=== PATIENT | female | born 1950 | race Caucasian/White ===

== ENCOUNTER 2020-12-13 10:55 | Emergency (ER) | payer OTHER ==
--- OUTSIDE RECORDS SUMMARY | 2020-12-13 10:57 | XMS REPORT | Continuity of Care Document ---
:1950 Author Organization [facility] t Address [address] [place] [address] Care Team Providers Name Role Phone Lab, Fam Pob I Attending Clinician Unavailable Doctor Unassigned, Name Attending Clinician Unavailable Simón Young Attending Clinician Problems Condition Condition Condition Status Onset Resolution Last Treating Co mments Source Name Details Category Date Date Treatment Clinician Date Morbid Problem Active 2018-10-12 Memor ia obesity 21:24:37 l (disorder) Morbid Herm cristobal obesity (disorder) Active Problem 10/12/2018 [facility] Paresthesi Problem Active 2018-10-12 M emoria a 21:24:37 l (finding) [place] Paresthesi a (finding) Active Problem 10/12/2018 [facility] Tremor Problem Active 2018-10-12 Memor ia (finding) 21:24:37 l Tremor [place] (finding) Active Problem 10/12/2018 [facility] Hemifacial Problem Active 2018-10-12 M emoria spasm 21:24:37 l (finding) Josh Hemifacial spasm (finding) Active Problem 10/12/2018 [facility] Hyperlipid Problem Active 2018-10-12 M emoria emia 21:24:37 l (disorder) Raymundo n Hyperlipid emia (disorder) Active Problem 10/12/2018 [facility] Hypertensi Problem Active 2018-10-12 M emoria ve 21:24:37 l disorder, Josh systemic Hypertensi arterial ve (disorder) disorder, systemic arterial (disorder) Active Problem 10/12/2018 [facility] Allergies, Adverse Reactions, Alerts Allergy Allergy Status Severity Reaction(s) Onset Inactive Treating Comm ents Source Name Type Date Date Clinician No Known No Known Active Memori a Medicati Medicati l on on Josh Ivania Redd s s Social History Social Habit Start Date Stop Date Quantity Comments Source Social History 2018-08-31 2018-08-31 Rudolph ziegler 19:36:24 19:36:24 Medications This patient has no known medications. Procedures This patient has no known procedures. Encounters Start End Encounter Admission Attending Care Care Encounter Source Date/Time Date/Time Type Type Clinicians Facility Department ID 2020-06-02 2020-06-02 Laboratory Lab, [facility] [id number] 18:05:25 18:25:25 Only Fam Pob I Health [id number] [place] [id number] Profess [phone] [address]al [address] 2020-06-02 2020-06-02 Letter Doctor PAMELA [id number] 00:00:00 00:00:00 (Out) Unassigned, YANG [id number] [place] [facility] [id number] 2018-10-10 2018-10-10 Outpatient GALA Young MISCHER [id number] 09:30:00 09:30:00 Errol Gr Results This patient has no known results.
[2020-12-13] MEDS ORDERED: ACETAMINOPHEN 500 MG TAB ONE (11:59)
[2020-12-13 12:36] LABS: Absolute Lymphocytes (CBC) 0.4 K/uL (0.7-4.9); Basophils % 0.6 % (0-1.3); Hematocrit 40.5 % (36.0-45.0); Lymphocytes % 3.7 % (15.3-44.8); RBC Red Blood Cell Count 4.52 M/uL (3.86-4.86)
--- NOTE | 2020-12-13 12:38 | RAD REPORT ---
EXAM DESCRIPTION: CT - Abdomen Pelvis W Contrast - 12/13/2020 12:27 pm CLINICAL HISTORY: Abdominal pain COMPARISON: none. TECHNIQUE: Computed axial tomography of the abdomen pelvis was obtained. 100 cc Isovue-300 was admin istered intravenously. Oral contrast was not requested which limits evaluation of bowel. All CT scans are performed using dose optimization technique as appropriate and may include automated exposure control or mA/KV adjustment according to patient size. FINDINGS: A 2 centimeter low to intermediate density area is present within the left kidney. Enhance ment of the wall of left renal pelvis. Bladder wall appears thickened. The liver, spleen, pancreas, adrenal and right kidney appear unremarkable. There is no evidence of diverticulitis. IMPRESSION: A 2 centimeter low to intermediate density area is present within the left kidney. Enhan cement of the wall of left renal pelvis. Bladder wall appears thickened. These findings probably jeyson sary infection. Follow-up renal ultrasound recommended after treatment
[2020-12-13 13:00] LABS: Blood Morphology Comment NOTED (NOT SEEN); Platelet Estimate ADEQ; Platelets, Giant FEW
[2020-12-13 13:05] LABS: Albumin 3.1 g/dL (3.4-5.0); Bilirubin Direct 0.4 mg/dL (0-0.2); Protein, Total 6.6 g/dL (6.4-8.2)
[2020-12-13 14:16] LABS: Urine Blood Negative (Negative); Urine Glucose Negative (Negative); Urine Protein Negative (Negative); Urine Specific Gravity <=1.005 (1.005-1.030); Urine pH 5.5 (5.0-7.0)
[2020-12-13 14:45] LABS: Urine Bacteria 20-50 /HPF (<20); Urine RBC <5 /HPF (NONE SEEN)
--- NOTE | 2020-12-13 14:48 | EDPHYS ---
Physician Documentation [facility] Name: Beth Vazquez Age: 70 yrs Sex: Female : 1950 Arrival Date: 12/13/2020 Time: 10:58 Bed 6 Private MD: ED Physician Pako Quinones HPI: 12/13 15:57 This 70 yrs old Female presents to ER via Ambulatory with complaints of Fever.kb 15:57 The patient presents with abdominal pain in the left lower quadrant. Onset: The kb symptoms/episode began/occurred yesterday. The symptoms do not radiate. Associated signs and symptoms: Pertinent positives: fever, nausea, "loose stool, but not diarrhea". The symptoms are described as constant. Modifying factors: The symptoms are alleviated by nothing, the symptoms are aggravated by nothing. Severity of pain: At its worst the pain was moderate in the emergency department the pain is unchanged. The patient has not experienced similar symptoms in the past. The patient has not recently seen a physician. Historical: - Allergies: 11: No Known Allergies; ca1 - Home Meds: : None [Active]; ca1 - PMHx: 11: Hypertensive disorder; Hypercholesterolemia; ca1 - PSHx: 11:31 None; ca1 - Immunization history:: Client reports receiving the 2nd dose of the Covid vaccine, Client reports receiving the 1st dose of the Covid vaccine, Pneumococcal vaccine is not up to date, Flu vaccine is up to date. - Social history:: Smoking status: Patient denies any tobacco usage or history of. ROS: 15:54 Respiratory: Negative for shortness of breath, cough, wheezing, and pleuritic chest kb pain. 15:54 Constitutional: Positive for fever, Negative for body aches, chills, fatigue, malaise, poor PO intake, weight loss. 15:54 Abdomen/GI: Positive for abdominal pain, nausea and vomiting, Negative for constipation, anorexia. 15:54 Back: Positive for flank pain, on the left. 15:54 All other systems are negative. Exam: 15:56 Constitutional: This is a well developed, well nourished patient who is awake, alert, kb and in no acute distress. Head/Face: Normocephalic, atraumatic. ENT: Moist Mucous membranes Cardiovascular: Regular rate and rhythm with a normal S1 and S2. No gallops, murmurs, or rubs. No pulse deficits. Respiratory: Respirations even and unlabored. No increased work of breathing, no retractions or nasal flaring. Abdomen/GI: Soft, non-tender. No distention Skin: Warm, dry with normal turgor. Normal color. MS/ Extremity: Pulses equal, no cyanosis. Neurovascular intact. Full, normal range of motion. Neuro: Awake and alert, GCS 15, oriented to person, place, time, and situation. Moves all extremities. Normal gait. Psych: Awake, alert, with orientation to person, place and time. Behavior, mood, and affect are within normal limits. 15:56 Back: CVA tenderness, that is mild, is noted on the left. Vital Signs: 11:28 BP 138 / 81; Pulse 80; Resp 18 S; Temp 102.3(O); Pulse Ox 99% on R/A; Weight 90.72 kg ca1 (R); Height 5 ft. 2 in. (157.48 cm) (R); Pain 8/10; 11:59 Temp 101.9(O); tr6 14:02 BP 140 / 65; Pulse 72; Resp 15; Temp 99; Pulse Ox 97% ; jl7 11:28 Body Mass Index 36.58 (90.72 kg, 157.48 cm) ca1 MDM: 11:35 Patient medically screened. kb 14:47 Data reviewed: vital signs, nurses notes. Data interpreted: Pulse oximetry: on room air kb is 97 %. Interpretation: normal. Counseling: I had a detailed discussion with the patient and/or guardian regarding: the historical points, exam findings, and any diagnostic results supporting the discharge/admit diagnosis, lab results, radiology results, the need for outpatient follow up, a family practitioner, to return to the emergency department if symptoms worsen or persist or if there are any questions or concerns that arise at home. 15:56 ED course: Discussed HPI, exam and diagnostics with Dr Quinones. Recommends antibiotics kb and outpatient follow up. Pt is nontoxic in appearance and is ready to go home as well. . 12/13 11:36 Order name: Basic Metabolic Panel kb 12/13 11:36 Order name: CBC with Diff kb 12/13 11:36 Order name: Hepatic Function; Complete Time: 13:07 kb 12/13 11:36 Order name: Lipase; Complete Time: 13:07 kb 12/13 11:36 Order name: Blood Culture Adult (2) kb 12/13 11:36 Order name: Lactate; Complete Time: 12:46 kb 12/13 11:36 Order name: Procalcitonin; Complete Time: 13:20 kb 12/13 11:36 Order name: CT Abd/Pelvis - IV Contrast Only; Complete Time: 12:39 kb 12/13 11:36 Order name: Basic Metabolic Panel; Complete Time: 13:07 EDMI 12/13 11:44 Order name: Urine Microscopic Only; Complete Time: 14:46 kb 12/13 13:00 Order name: Manual Differential EDMI 12/13 14:15 Order name: Urine Dipstick-Ancillary; Complete Time: 14:17 EDMI 12/13 14:50 Order name: Urine Culture [facility] 12/13 11:36 Order name: IV Saline Lock; Complete Time: 12:23 kb 12/13 11:36 Order name: Labs collected and sent; Complete Time: 12:23 kb 12/13 11:44 Order name: Urine Dipstick-Ancillary (obtain specimen); Complete Time: 14:42 kb Administered Medications: 12:23 Drug: Tylenol 1000 mg Route: PO; jl7 14:02 Follow up: Response: No adverse reaction; Temperature is decreased [facility] 14:42 Drug: Rocephin (cefTRIAXone) 1 grams Route: IV; Rate: calculated rate; Site: right jl7 wrist; 14:54 Follow up: IV Status: Completed infusion jl7 14:54 Follow up: Response: No adverse reaction jl7 Disposition Summary: 12/13/20 14:47 Discharge Ordered Location: Home kb Condition: Stable kb Diagnosis - UTI/ Urinary tract infection, site not specified kb Followup: kb - With: Emergency Department - When: As needed - Reason: Worsening of condition Followup: kb - With: Private Physician - When: 2 - 3 days - Reason: Recheck today's complaints, Continuance of care, Re-evaluation by your physician Discharge Instructions: - Discharge Summary Sheet kb - Urinary Tract Infection, Adult, [id number] kb Forms: - Medication Reconciliation Form kb - Thank You Letter kb - Antibiotic Education kb - Prescription Opioid Use kb Prescriptions: - Cipro 500 mg Oral Tablet - take 1 tablet by ORAL route every 12 hours for 10 days; 20 tablet; Refills: 0, kb Product Selection Permitted Signatures: Dispatcher [employer] Regina Mcgrath, Chuck Fields RN RN jl7 Heidi Gross RN RN ca1 Corrections: (The following items were deleted from the chart) 15:59 15:54 Abdomen/GI: Positive for abdominal pain, Negative for nausea, vomiting, and kb diarrhea, kb
--- NOTE | 2020-12-13 14:48 | ER ---
Nurse's Notes [facility] Name: Beth Vazquez Age: 70 yrs Sex: Female : 1950 Arrival Date: 12/13/2020 Time: 10:58 Bed 6 Private MD: Diagnosis: UTI/ Urinary tract infection, site not specified Presentation: 12/13 11:28 Chief complaint: Patient states: Fever and chills since yesterday. Htemp 108F. Denies ca1 cough and congestions. Reports lower back, more to the Left. LLQ pain. Reports N/V/loose stools. Coronavirus screen: Client denies travel out of the [place] in the last 14 days. chills, diarrhea, fatigue, nausea, vomiting. Client presents with at least one sign or symptom that may indicate coronavirus-19. Standard/surgical mask placed on the client. Provider contacted for isolation considerations. Ebola Screen: Patient negative for fever greater than or equal to 101.5 degrees Fahrenheit, and additional compatible Ebola Virus Disease symptoms Patient denies exposure to infectious person. Patient denies travel to an Ebola-affected area in the 21 days before illness onset. No symptoms or risks identified at this time. Initial Sepsis Screen: Does the patient meet any 2 criteria? No. Patient's initial sepsis screen is negative. Does the patient have a suspected source of infection? No. Patient's initial sepsis screen is negative. Risk Assessment: Do you want to hurt yourself or someone else? Patient reports no desire to harm self or others. Onset of symptoms was December 12, 2020. 11:28 Method Of Arrival: Ambulatory ca1 11:28 Acuity: JAVIER 3 ca1 Historical: - Allergies: 11:31 No Known Allergies; ca1 - Home Meds: 11:31 None [Active]; ca1 - PMHx: 11:31 Hypertensive disorder; Hypercholesterolemia; ca1 - PSHx: 11:31 None; ca1 - Immunization history:: Client reports receiving the 2nd dose of the Covid vaccine, Client reports receiving the 1st dose of the Covid vaccine, Pneumococcal vaccine is not up to date, Flu vaccine is up to date. - Social history:: Smoking status: Patient denies any tobacco usage or history of. Screenin:23 Abuse screen: Denies threats or abuse. Denies injuries from another. Nutritional jl7 screening: No deficits noted. Tuberculosis screening: No symptoms or risk factors identified. Fall Risk IV access (20 points). Total Evans Fall Scale indicates No Risk (0-24 pts). Assessment: 12:00 General: Appears in no apparent distress. uncomfortable, Behavior is calm, cooperative, jl7 appropriate for age. Pain: Complains of pain in low back area Pain currently is 8 out of 10 on a pain scale. Neuro: Level of Consciousness is awake, alert, obeys commands, Oriented to person, place, time, situation. Cardiovascular: Patient's skin is warm and dry. Respiratory: Airway is patent Respiratory effort is even, unlabored, Respiratory pattern is regular, symmetrical. Derm: Skin is pink, warm \T\ dry. 13:00 Reassessment: Patient appears in no apparent distress at this time. No changes from jl7 previously documented assessment. Patient and/or family updated on plan of care and expected duration. Pain level reassessed. Patient is alert, oriented x 3, equal unlabored respirations, skin warm/dry/pink. 14:04 Reassessment: Patient appears in no apparent distress at this time. Patient and/or jl7 family updated on plan of care and expected duration. Pain level reassessed. Patient is alert, oriented x 3, equal unlabored respirations, skin warm/dry/pink. Patient states feeling better. Patient states symptoms have improved. 14:45 Reassessment: ALL Tapia at bedside discussing results and POC. jl7 Vital Signs: 11:28 BP 138 / 81; Pulse 80; Resp 18 S; Temp 102.3(O); Pulse Ox 99% on R/A; Weight 90.72 kg ca1 (R); Height 5 ft. 2 in. (157.48 cm) (R); Pain 8/10; 11:59 Temp 101.9(O); tr6 14:02 BP 140 / 65; Pulse 72; Resp 15; Temp 99; Pulse Ox 97% ; jl7 11:28 Body Mass Index 36.58 (90.72 kg, 157.48 cm) ca1 ED Course: 10:58 Patient arrived in ED. bp1 11:31 Triage completed. ca1 11:31 Arm band placed on right wrist. ca1 11:35 Regina Pollard FNP-C is [facility]. kb 11:35 Pako Quinones MD is Attending Physician. kb 11:36 Chuck Strange, RN is Primary Nurse. jl7 12:00 Inserted saline lock: 20 gauge in right wrist, using aseptic technique. tr6 12:18 First set of blood cultures drawn by me. Inserted saline lock: 20 gauge in left jl7 antecubital area, using aseptic technique. Blood collected. 12:18 Initial lab(s) drawn, by ak, sent to lab. Second set of blood cultures drawn by me. jl7 12:23 Patient has correct armband on for positive identification. Placed in gown. Bed in low jl7 position. Call light in reach. Side rails up X 1. Pulse ox on. NIBP on. 12:27 CT Abd/Pelvis - IV Contrast Only In Process Unspecified. EDMS 14:42 No provider procedures requiring assistance completed. jl7 14:55 IV discontinued, intact, bleeding controlled, No redness/swelling at site. Pressure jl7 dressing applied. Administered Medications: 12:23 Drug: Tylenol 1000 mg Route: PO; jl7 14:02 Follow up: Response: No adverse reaction; Temperature is decreased jl7 14:42 Drug: Rocephin (cefTRIAXone) 1 grams Route: IV; Rate: calculated rate; Site: right jl7 wrist; 14:54 Follow up: IV Status: Completed infusion jl7 14:54 Follow up: Response: No adverse reaction jl7 Outcome: 14:47 Discharge ordered by . kb 14:54 Discharged to home ambulatory, with family. jl7 14:54 Condition: stable 14:54 Discharge instructions given to patient, family, Instructed on discharge instructions, follow up and referral plans. medication usage, Demonstrated understanding of instructions, follow-up care, medications, Prescriptions given X 1. 14:55 Patient left the ED. jl7 Signatures: Dispatcher [employer] EDMS Regina Pollard, SENIOR ENGINEER-C SENIOR ENGINEER-Chuck Dennis, RN RN jl7 Heidi Gross RN ANNALISA [facility] Laura Borden Tiffany, RN RN tr6 Corrections: (The following items were deleted from the chart) 14:04 14:03 General: Appears in no apparent distress. uncomfortable, Behavior is calm, jl7 cooperative, appropriate for age, jl7 14:55 14:45 IV discontinued, intact, bleeding controlled, No redness/swelling at site. jl7 Pressure dressing applied, jl7
[2020-12-13] MEDS ORDERED: CEFTRIAXONE/SWI 1gm 1 GM/10 ML SYR ONE (14:59)
[2020-12-13 15:07] VITALS: BP 140/65; TEMP 99; O2SAT 97
== END 2020-12-13 14:55 | disposition home or self-care (01) ==
LOC: ER 10:55
DX: N39.0 Urinary tract infection, site not specified (principal); I10 Essential (primary) hypertension
CPT/HCPCS: 87040 ×2; 87088; 85025; 87086; 80048; 36415; 82565; 80076; 83605; 83690; 84145; 74177; 96374; 99284; Q9967; J0696; 81003; 81015; 87077; 87186